=== PATIENT | female | born 1965 | race Caucasian/White ===

== ENCOUNTER 2017-11-24 11:37 | Emergency (ER) | payer OTHER ==
[~2017-11-24] VITALS: Ht 157.5 cm; Wt 59.0 kg
[~2017-11-24 11:37] MED LIST: ACET325 PO; ALBU90OI INH; ALPR.5 PO; ALPR1; ALPR1 PO; AMOX500 PO; Advil200 M1 PO; Ativan1 MG PO; CEPH500 PO; CETI10; CRUTCH4 UD; CYCL10 PO; DOXY100 PO; DULO60; DULO60 PO; ESCI10; FLUO10; FLUT110OIA IH; GUAI600T33 PO; HYDACE5; HYDACE5 PO; HYDACE5325 PO; HYDACE7.5 PO; HYDGUAL120 PO; IBUP200 PO; IBUP800 PO; KETO10 PO; METO50; NAPR220 PO; NAPR500 PO; Norco 5-325 Ta1 EACH PO; PENVK500 PO; PROM25 PO; Robaxin500 MG PO; SUMA25; TRAM50 PO; Ultram50 MG PO; Valium5 MG PO; Veetids 500500 MG PO
[2017-11-24] MEDS ORDERED: Veetids 500500 MG PO (12:14)
[2017-11-24] MEDS ORDERED: Flonase 0.05% N16 GM (12:23)
[2017-11-24] MEDS ORDERED: Sudogest30 MG PO (12:23)
== END 2017-11-24 12:40 | disposition home or self-care (01) ==
LOC: ER 11:37
DX: J03.90 Acute tonsillitis, unspecified (principal); F41.9 Anxiety disorder, unspecified; Z88.2 Allergy status to sulfonamides
CPT/HCPCS: 87081; 87147; 87430; 99283; J1100